=== PATIENT | female | born 1930 | race African-American/Black ===

== ENCOUNTER → 2016-08-24 | Outpatient (CLI) | payer MEDICARE, OTHER ==
[2016-01-08 14:28] VITALS: BP 133/56
[~2016-08-24] MED LIST: GLIM4TAB2 PO; HYDR12.58 PO; LEVO500T38 PO; ONDA4TAB7 PO; POTA10CA PO; SIMV10TA3 PO; SITA100T PO; VALS1TAB18 PO; VALS320T2 PO; VENTOLIN HFA18 GM INH
--- NOTE | 2016-08-24 12:30 | RAD ---
Left knee, 3 views, 08/24/2016: History: Lateral knee pain, previous fall There is patchy bony demineralization. There is mild spurring at the knee joint and at the patellofemoral articulation. No acute fracture or dislocation is identified. No significant joint effusion is seen. IMPRESSION: 1. Demineralization. 2. Mild degenerative change. 3. No acute bony abnormality is detected.
== END | disposition home or self-care (01) ==
LOC: RAD 09:59
PROVIDERS: ATTEND Family Medicine
DX: M17.12 Unilateral primary osteoarthritis, left knee (principal)
CPT/HCPCS: 73562

== ENCOUNTER 2019-05-02 19:18 | Emergency (ER) | payer BC, MEDICAID ==
[~2019-05-02] VITALS: Ht 162.6 cm; Wt 83.9 kg
[~2019-05-02 19:18] MED LIST changes: -GLIM4TAB2 PO; +GLIM4TAB8 PO; -LEVO500T38 PO; +LEVO500T59 PO; -POTA10CA PO; +POTA10TA12 PO; +SIMV10TA15 PO; -SIMV10TA3 PO
[2019-05-02 20:09] LABS: BASO # 0.1 x10^3/uL (0.0-0.2); BASO % 1 % (0-3); EOS # 0.2 x10^3/uL (0.0-0.7); EOS % 3 % (0-3); HEMATOCRIT 38.5 % (36.0-47.0); HEMOGLOBIN 12.7 g/dL (12.0-15.5); LYMPH % 29 % (24-48); MEAN CORPUSCULAR HEMOGLOBIN 29 pg (25-35); MEAN CORPUSCULAR HGB CONC 33 g/dL (31-37); MEAN CORPUSCULAR VOLUME 89 fL (79-100); MONO # 0.4 x10^3/uL (0.0-1.1); MONO % 6 % (0-9); NEUT # 4.3 x10^3/uL (1.8-7.7); NEUT % 62 % (31-73); PLATELET COUNT 189 x10^3/uL (140-400); RED BLOOD COUNT 4.33 x10^6/uL (3.50-5.40); RED CELL DISTRIBUTION WIDTH 13.7 % (11.5-14.5); WHITE BLOOD COUNT 6.9 x10^3/uL (4.0-11.0)
--- NOTE | 2019-05-02 20:11 | PHYS DOC ---
Past Medical History Past Medical History: CVA, Diabetes-Type II, High Cholesterol, Hypertension, UTI, Other Additional Past Medical Histor: BRAIN TUMOR, HEART MURMUR Past Surgical History: Hysterectomy, Other Additional Past Surgical Histo: BLADDER REPAIR, brain tumor removed Alcohol Use: None Drug Use: None Adult General Chief Complaint Chief Complaint: CHEST PAIN HPI HPI 89-year-old female presents to the emergency department with complaints of chest pain, cough. Patient has a history of hypertension, diabetes, hyperlipidemia. She is unable to give me details of when her chest pain started she's a little confused on examination. She denies any headache or visual change, denies any abdominal pain at this time. Nothing makes her pain worse, nothing makes her pain better. Review of Systems Review of Systems Constitutional: Denies fever or chills [] Respiratory: Denies cough or shortness of breath [] Cardiovascular: No additional information not addressed in HPI [] GI: Denies abdominal pain, nausea, vomiting, bloody stools or diarrhea [] Musculoskeletal: Denies back pain or joint pain [] Neurologic: Denies headache, focal weakness or sensory changes [] All other systems were reviewed and found to be within normal limits, except as documented in this note. Current Medications Current Medications Current Medications Medications (Trade) Dose Ordered Sig/Hamzah Start Time Stop Time Status Last Admin Dose Admin Aspirin (Children'S Aspirin) 324 mg 1X ONCE 05/02/19 20:15 05/02/19 20:16 DC 05/02/19 20:12 324 MG Nitroglycerin (Nitrostat) 0.4 mg PRN Q5MIN PRN 05/02/19 20:15 05/03/19 20:14 05/02/19 20:14 0.4 MG Allergies Allergies Allergies Coded Allergies Type Severity Reaction Last Updated Verified Sulfa (Sulfonamide Antibiotics) Allergy Intermediate 05/02/19 Yes codeine Adverse Reaction Intermediate CONFUSED 05/02/19 Yes Physical Exam Physical Exam Constitutional: Well developed, well nourished, no acute distress, non-toxic appearance. [] HENT: Normocephalic, atraumatic, bilateral external ears normal, oropharynx moist, no oral exudates, nose normal. [] Eyes: PERRLA, EOMI, conjunctiva normal, no discharge. [] Cardiovascular:Heart rate regular rhythm, no murmur [] Lungs & Thorax: Bilateral breath sounds clear to auscultation [] Abdomen: Bowel sounds normal, soft, no tenderness, no masses, no pulsatile masses. [] Skin: Warm, dry, no erythema, no rash. [] Extremities: No tenderness, no edema. [] Neurologic: Alert and oriented X 3,no focal deficits noted. [] Psychologic: Affect normal, judgement normal, mood normal. [] Current Patient Data Vital Signs Vital Signs Date Time Temp Pulse Resp B/P (MAP) Pulse Ox O2 Delivery O2 Flow Rate FiO2 05/02/19 21:00 60 20 164/78 (106) 98 Room Air 05/02/19 20:12 99.1 99.1 Lab Values Laboratory Tests Test 05/02/19 19:43 White Blood Count 6.9 x10^3/uL (4.0-11.0) Red Blood Count 4.33 x10^6/uL (3.50-5.40) Hemoglobin 12.7 g/dL (12.0-15.5) Hematocrit 38.5 % (36.0-47.0) Mean Corpuscular Volume 89 fL (79-100) Mean Corpuscular Hemoglobin 29 pg (25-35) Mean Corpuscular Hemoglobin Concent 33 g/dL (31-37) Red Cell Distribution Width 13.7 % (11.5-14.5) Platelet Count 189 x10^3/uL (140-400) Neutrophils (%) (Auto) 62 % (31-73) Lymphocytes (%) (Auto) 29 % (24-48) Monocytes (%) (Auto) 6 % (0-9) Eosinophils (%) (Auto) 3 % (0-3) Basophils (%) (Auto) 1 % (0-3) Neutrophils # (Auto) 4.3 x10^3/uL (1.8-7.7) Lymphocytes # (Auto) 2.0 x10^3/uL (1.0-4.8) Monocytes # (Auto) 0.4 x10^3/uL (0.0-1.1) Eosinophils # (Auto) 0.2 x10^3/uL (0.0-0.7) Basophils # (Auto) 0.1 x10^3/uL (0.0-0.2) Sodium Level 141 mmol/L (136-145) Potassium Level 4.0 mmol/L (3.5-5.1) Chloride Level 103 mmol/L (98-107) Carbon Dioxide Level 29 mmol/L (21-32) Anion Gap 9 (6-14) Blood Urea Nitrogen 24 mg/dL (7-20) H Creatinine 1.2 mg/dL (0.6-1.0) H Estimated GFR (Cockcroft-Gault) 51.2 BUN/Creatinine Ratio 20 (6-20) Glucose Level 195 mg/dL (70-99) H Calcium Level 10.1 mg/dL (8.5-10.1) Magnesium Level 2.0 mg/dL (1.8-2.4) Total Bilirubin 0.2 mg/dL (0.2-1.0) Aspartate Amino Transferase (AST) 24 U/L (15-37) Alanine Aminotransferase (ALT) 35 U/L (14-59) Alkaline Phosphatase 60 U/L (46-116) Troponin I Quantitative < 0.017 ng/mL (0.000-0.055) FF-Mya-B-Type Natriuretic Peptide 120 pg/mL (0-449) Total Protein 8.0 g/dL (6.4-8.2) Albumin 3.8 g/dL (3.4-5.0) Albumin/Globulin Ratio 0.9 (1.0-1.7) L Laboratory Tests 05/02/19 19:43 Laboratory Tests 05/02/19 19:43 EKG EKG EKG reviewed, left axis deviation, normal sinus rhythm, heart rate 65, no STEMI[] Radiology/Procedures Radiology/Procedures [facility] [address] [place] [address] IMAGING REPORT Signed PATIENT: TEETEE RENAE CACCOUNT: [id number] : 1930 LOCATION: ER AGE: 89 SEX: F EXAM STATUS: PRE ER ORD. PHYSICIAN: NISH FLOWERS MD REASON: chest pain PROCEDURE: PORTABLE CHEST 1V Chest AP portable at 2015: Reason for examination: Chest pain. Comparison is made to previous study dated 01/01/2016. The heart size and mediastinal show no gross abnormalities considering patient rotation. Lung liu however show density at the left lung base laterally which may reflect some consolidated infiltrates from pneumonia however a mass cannot be excluded. Right lung field is clear. There continue to be calcifications consistent with granuloma in the left lung field. No acute bony abnormalities are seen. IMPRESSION: Density in the left lower lobe laterally. This may reflect consolidated infiltrates from pneumonia however a mass cannot be excluded. Recommend clinical correlation and follow-up. Electronically signed by: Awa Shah MD (05/02/2019 8:25 PM) [id number] DICTATED and SIGNED BY: AWA SHAH MD DATE: 05/02/192024 [] Course & Med Decision Making Course & Med Decision Making Pertinent Labs and Imaging studies reviewed. (See chart for details) []89-year-old female presents to the emergency department with complaints of chest pain, cough. Patient has a history of hypertension, diabetes, hyperlipidemia. She is unable to give me details of when her chest pain started she's a little confused on examination. She denies any headache or visual change, denies any abdominal pain at this time. Nothing makes her pain worse, nothing makes her pain better. Labs reviewed - negative to date Trop negative x 2 CXR with evidence of left lower lobe consolidation Discussed findings with patient/family at bedside Recommend dc home and follow up as outpatient Patient will need repeat CXR follow up as outpatient Dragon Disclaimer Dragon Disclaimer This electronic medical record was generated, in whole or in part, using a voice recognition dictation system. The HEART Score for CP Pts HEART Score for Chest Pain: HEART Score for Chest Pain Response (Comments) Value History Slighlty/Non-Suspicious 0 ECG Nonspecific Repolarizatio 1 Age > 65 2 Risk Factors 1 or 2 Risk Factors 1 Troponin < Normal Limit 0 Total 4 Risk Factors: Risk Factors: DM, Current or recent (<one month) smoker, HTN, HLP, family history of CAD, obesity. Risk Scores: Score 0 - 3: 2.5% MACE over next 6 weeks - Discharge Home Score 4 - 6: 20.3% MACE over next 6 weeks - Admit for Clinical Observation Score 7 - 10: 72.7% MACE over next 6 weeks - Early Invasive Strategies Departure Departure Impression: Primary Impression: Chest pain Additional Impression: Pneumonia Disposition: HOME, SELF-CARE Condition: IMPROVED Referrals: NAIDA RAMSEY (PCP) Patient Instructions: Chest Pain Observation, Pneumonia, Adult, [id number] Additional Instructions: Recommend follow up with PCP 3 - 5 days Return to the ER with worsening symptoms, intractable pain, fever, altered mental status Tylenol/Motrin as needed for pain Take antibiotics - Augmentin po BID x 7 days Patient needs repeat chest xray in 10 days for follow up Scripts Amoxicillin/Potassium Clav (AUGMENTIN 875-125 TABLET) 1 Each Tablet 1 TAB PO Q12HR, #20 TAB Prov: NISH FLOWERS MD 05/03/19 Problem Qualifiers Primary Impression: Chest pain Chest pain type: unspecified Qualified Codes: R07.9 - Chest pain, u nspecified Additional Impression: Pneumonia Pneumonia type: due to unspecified organism Laterality: left Lung locatio n: lower lobe of lung Qualified Codes: J18.9 - Pneumonia, unspecified organism NISH FLOWERS MD May 02, 2019 20:10
[2019-05-02] MEDS ORDERED: ASPIRIN CHEWABLE 81 MG TABLET. PO ONE (20:15)
[2019-05-02] MEDS ORDERED: NITROGLYCERIN SUBLINGUAL 0.4 MG BOTTLE OF 25. SL PRN (20:15)
--- NOTE | 2019-05-02 20:27 | RAD ---
Chest AP portable at 2015: Reason for examination: Chest pain. Comparison is made to previous study dated 01/01/2016. The heart size and mediastinal show no gross abnormalities considering patient rotation. Lung liu however show density at the left lung base laterally which may reflect some consolidated infiltrates from pneumonia however a mass cannot be excluded. Right lung field is clear. There continue to be calcifications consistent with granuloma in the left lung field. No acute bony abnormalities are seen. IMPRESSION: Density in the left lower lobe laterally. This may reflect consolidated infiltrates from pneumonia however a mass cannot be excluded. Recommend clinical correlation and follow-up. Electronically signed by: Clau Melendrez MD (05/02/2019 8:25 PM) [facility]
[2019-05-02 20:29] LABS: CALCIUM 10.1 mg/dL (8.5-10.1); CREATININE 1.2 mg/dL (0.6-1.0); GFR 51.2
[2019-05-02 20:34] LABS: ALBUMIN 3.8 g/dL (3.4-5.0); ALBUMIN/GLOBULIN RATIO 0.9 (1.0-1.7); TOTAL BILIRUBIN 0.2 mg/dL (0.2-1.0)
[2019-05-03] MEDS ORDERED: AMOX1TAB61 PO (00:22)
[2019-05-03 00:25] VITALS: BP 186/84
--- NOTE | 2019-05-03 06:36 | EKG ---
[facility] [address] [place] [address] Test Date: 2019-05-02 Test Time: 19:24:12 Pat Name: TEETEE RENAE Department: Room: Gender: F [employer]: : 1930 Requested By: NISH FLOWERS Order Number: [id number] Reading MD: Measurements Intervals [place] Rate: 65 P: -3 AK: 258 QRS: -9 QRSD: 68 T: 51 QT: 396 QTc: 413 Interpretive Statements SINUS RHYTHM PROLONGED AK INTERVAL LEFTWARD AXIS ABNORMAL ECG RI6.01 No previous ECG available for comparison
== END 2019-05-03 00:38 | disposition home or self-care (01) ==
LOC: ER 19:18
DX: J18.9 Pneumonia, unspecified organism (principal); E11.9 Type 2 diabetes mellitus without complications; E78.00 Pure hypercholesterolemia, unspecified; I10 Essential (primary) hypertension; Z86.73 Personal history of transient ischemic attack (TIA), and cerebral infarction without residual deficits; Z88.2 Allergy status to sulfonamides; Z88.5 Allergy status to narcotic agent
CPT/HCPCS: 36415; 71045; 80053; 83735; 83880; 84484; 85025; 93005; 99285-25

== ENCOUNTER 2019-07-09 03:46 | Emergency (ER) | payer OTHER, MEDICAID ==
[~2019-07-09] VITALS: Ht 162.6 cm; Wt 75.5 kg
[~2019-07-09 03:46] MED LIST changes: +AMOX1TAB61 PO
--- NOTE | 2019-07-09 04:45 | RAD ---
AP chest. HISTORY: Cough Portable AP view was taken of the chest. There is widening of the upper mediastinum mildly more prominent than the old study. Widening the mediastinum could be related to adenopathy or substernal thyroid or tortuous vessels CT could be of benefit. There are calcified granulomas or calcified pleural plaques similar to the old exam. There is no effusion. There are no definite new infiltrates. IMPRESSION: 1. Mild increase widening superior mediastinum. 2. No new infiltrates or other acute change. Electronically signed by: Humberto Osborne MD (07/09/2019 4:42 AM) [id number]
[2019-07-09] MEDS ORDERED: AMOX1TAB61 PO (05:11)
--- NOTE | 2019-07-09 05:12 | PHYS DOC ---
Past Medical History Past Medical History: Diabetes-Type II, High Cholesterol Additional Past Medical Histor: BRAIN TUMOR, HEART MURMUR Past Surgical History: Hysterectomy, Other Additional Past Surgical Histo: brain tumor removal sg Smoking Status: Former Smoker Alcohol Use: None Drug Use: None Adult General Chief Complaint Chief Complaint: SHORTNESS OF BREATH HPI HPI 89 year old female presents with the chief complaint of cough and sinus congestion. States symptoms have been on going x 2 weeks. Symptoms worse over the last several days. States multiple sick contacts at her living facility. Cough is without sputum production. Similar symptoms several weeks ago-- placed on antibiotics with resolution of symptoms. Patient denies any chest pain. Review of Systems Review of Systems Constitutional: positive fever or chills [] Eyes: Denies change in visual acuity, redness, or eye pain [] HENT: positive nasal congestion no sore throat [] Respiratory: positive cough or shortness of breath [] Cardiovascular: No additional information not addressed in HPI [] GI: Denies abdominal pain, nausea, vomiting, bloody stools or diarrhea [] : Denies dysuria or hematuria [] Musculoskeletal: Denies back pain or joint pain [] Integument: Denies rash or skin lesions [] Neurologic: Denies headache, focal weakness or sensory changes [] Endocrine: Denies polyuria or polydipsia [] All other systems were reviewed and found to be within normal limits, except as documented in this note. Allergies Allergies Allergies Coded Allergies Type Severity Reaction Last Updated Verified Sulfa (Sulfonamide Antibiotics) Allergy Intermediate 05/02/19 Yes codeine Adverse Reaction Intermediate CONFUSED 05/02/19 Yes Physical Exam Physical Exam Constitutional: Well developed, well nourished, no acute distress, non-toxic appearance. [] HENT: Normocephalic, atraumatic, bilateral external ears normal, oropharynx moist, no oral exudates, nose normal. [] Eyes: PERRLA, EOMI, conjunctiva normal, no discharge. [] Neck: Normal range of motion, no tenderness, supple, no stridor. [] Cardiovascular:Heart rate regular rhythm, no murmur [] Lungs & Thorax: Bilateral breath sounds clear to auscultation [] Abdomen: Bowel sounds normal, soft, no tenderness, no masses, no pulsatile masses. [] Skin: Warm, dry, no erythema, no rash. [] Back: No tenderness, no CVA tenderness. [] Extremities: No tenderness, no cyanosis, no clubbing, ROM intact, no edema. [] Neurologic: Alert and oriented X 3, normal motor function, normal sensory function, no focal deficits noted. [] Psychologic: Affect normal, judgement normal, mood normal. [] Current Patient Data Vital Signs Vital Signs Date Time Temp Pulse Resp B/P (MAP) Pulse Ox O2 Delivery O2 Flow Rate FiO2 07/09/19 04:04 65 24 186/77 (113) 95 Room Air 07/09/19 03:49 98.7 98.7 EKG EKG [] Radiology/Procedures Radiology/Procedures [] Course & Med Decision Making Course & Med Decision Making Pertinent Labs and Imaging studies reviewed. (See chart for details) []Patient was evaluated for chief complaint. Workup consisted of radiologic imaging. Results reviewed and discussed with patient. Radiologist's impression no focal infiltrate questionable enlargement of mediastinum recommending follow- up CT. Discussed x-ray findings with the patient and suggested that she get a CT of her chest. Patient declining CT imaging in the emergency department. Patient states she would like to follow up with her primary care physician for further outpatient workup. At this time I'll place the patient on an antibiotic per her request. Patient was previously on Augmentin with resolution of similar symptoms. Patient's symptoms are more upper respiratory. She denies any chest pain. Dragon Disclaimer Dragon Disclaimer This electronic medical record was generated, in whole or in part, using a voice recognition dictation system. Departure Departure Impression: Primary Impression: Bronchitis Disposition: 01 HOME, SELF-CARE Condition: STABLE Referrals: NAIDA RAMSEY (PCP) Patient Instructions: Bronchitis Scripts Amoxicillin/Potassium Clav (AUGMENTIN 875-125 TABLET) 1 Each Tablet 1 TAB PO BID for 10 Days, #20 TAB 0 Refills Prov: SHANA JENSEN DO 07/09/19 SHANA JENSEN DO Jul 09, 2019 05:12
[2019-07-09 07:02] VITALS: BP 176/111
== END 2019-07-09 07:03 | disposition home or self-care (01) ==
LOC: ER 03:46
DX: J40 Bronchitis, not specified as acute or chronic (principal); E11.9 Type 2 diabetes mellitus without complications; E78.00 Pure hypercholesterolemia, unspecified; Z87.891 Personal history of nicotine dependence; Z88.2 Allergy status to sulfonamides; Z88.5 Allergy status to narcotic agent
CPT/HCPCS: 71045; 99284

== ENCOUNTER 2020-01-09 05:19 | Inpatient (IN) | payer OTHER, MEDICAID ==
[~2020-01-09] VITALS: Ht 162.6 cm; Wt 86.0 kg
--- NOTE | 2020-01-09 05:59 | PHYS DOC ---
Past Medical History Past Medical History: Diabetes-Type II, High Cholesterol Additional Past Medical Histor: BRAIN TUMOR, HEART MURMUR (SHANA SAVAGE I ) Past Surgical History: Hysterectomy, Other Additional Past Surgical Histo: brain tumor removal sg (MIKEYSHANA I ) Smoking Status: Former Smoker Alcohol Use: None Drug Use: None (MIKEYSHANA I ) General Adult EDM: Chief Complaint: NAUSEA/VOMITING/DIARRHA HPI: HPI: Patient is a 89 year old female presents from group home with the chief complaint nausea vomiting and loose stool since yesterday. Patient denies any associated abdominal pain. Patient also states she has a cough and sore throat for several days. No associated fever or shortness of breath. (MIKEYSHANA Viktoria LEVY) Review of Systems: Review of Systems: Constitutional: Denies fever or chills. [] Eyes: Denies change in visual acuity. [] HENT: Denies nasal congestion positive sore throat. [] Respiratory: positive cough denies shortness of breath. [] Cardiovascular: Denies chest pain or edema. [] GI: Denies abdominal pain, positive nausea, vomiting, loose stools [] : Denies dysuria. [] Musculoskeletal: Denies back pain or joint pain. [] Integument: Denies rash. [] Neurologic: Denies headache, focal weakness or sensory changes. [] Endocrine: Denies polyuria or polydipsia. [] Lymphatic: Denies swollen glands. [] Psychiatric: Denies depression or anxiety. [] (MIKEYSHANA Viktoria LEVY) Heart Score: Risk Factors: Risk Factors: DM, Current or recent (<one month) smoker, HTN, HLP, family history of CAD, obesity. Risk Scores: Score 0 - 3: 2.5% MACE over next 6 weeks - Discharge Home Score 4 - 6: 20.3% MACE over next 6 weeks - Admit for Clinical Observation Score 7 - 10: 72.7% MACE over next 6 weeks - Early Invasive Strategies (MIKEYSHANA Viktoria LEVY) Allergies: Allergies: Allergies Coded Allergies Type Severity Reaction Last Updated Verified Sulfa (Sulfonamide Antibiotics) Allergy Intermediate 05/02/19 Yes codeine Adverse Reaction Intermediate CONFUSED 05/02/19 Yes (MIKEYSHANA Viktoria LEVY) Physical Exam: PE: General: alert, no acute distress. Skin: warm, dry and intact. Head:: Normocephalic, atraumatic. Neck: Trachea midline. Eyes: EOMI, Normal conjunctiva, No drainage CARDIOVASCULAR: Regular rate and rhythm RESPIRATORY: No respiratory distress Back: Full range of motion. MUSCULOSKELETAL: Full range of motion of bilateral upper and lower extremities. Pain with ROM right shoulder (chronic) GASTROINTESTINAL: Abdomen soft without rebound or guarding. NEUROLOGICAL: Alert and noted to person, place and time. No neurological deficits observed Psychiatric: Cooperative. Normal judgment (SHANA SAVAGE DO) PE: Abdomen soft with tenderness in the epigastric and right-sided (ALMA HURTADO MD) Current Patient Data: Labs: Laboratory Tests Test 01/09/20 05:37 Glucose (Fingerstick) 201 mg/dL (70-99) H (SHANA SAVAGE DO) Labs: Laboratory Tests Test 01/09/20 05:35 01/09/20 05:37 01/09/20 06:15 White Blood Count 7.2 x10^3/uL Red Blood Count 4.25 x10^6/uL Hemoglobin 12.7 g/dL Hematocrit 38.2 % Mean Corpuscular Volume 90 fL Mean Corpuscular Hemoglobin 30 pg Mean Corpuscular Hemoglobin Concent 33 g/dL Red Cell Distribution Width 13.8 % Platelet Count 208 x10^3/uL Neutrophils (%) (Auto) 62 % Lymphocytes (%) (Auto) 31 % Monocytes (%) (Auto) 5 % Eosinophils (%) (Auto) 2 % Basophils (%) (Auto) 1 % Neutrophils # (Auto) 4.5 x10^3/uL Lymphocytes # (Auto) 2.2 x10^3/uL Monocytes # (Auto) 0.4 x10^3/uL Eosinophils # (Auto) 0.1 x10^3/uL Basophils # (Auto) 0.0 x10^3/uL Sodium Level 138 mmol/L Potassium Level 4.2 mmol/L Chloride Level 101 mmol/L Carbon Dioxide Level 30 mmol/L Anion Gap 7 Blood Urea Nitrogen 15 mg/dL Creatinine 1.2 mg/dL Estimated GFR (Cockcroft-Gault) 51.2 BUN/Creatinine Ratio 13 Glucose Level 204 mg/dL Calcium Level 9.3 mg/dL Total Bilirubin 0.3 mg/dL Aspartate Amino Transf (AST/SGOT) 24 U/L Alanine Aminotransferase (ALT/SGPT) 38 U/L Alkaline Phosphatase 60 U/L Troponin I Quantitative < 0.017 ng/mL Total Protein 8.1 g/dL Albumin 3.8 g/dL Albumin/Globulin Ratio 0.9 Lipase 719 U/L Glucose (Fingerstick) 201 mg/dL Urine Collection Type Unknown Urine Color Yellow Urine Clarity Clear Urine pH 5.0 Urine Specific [place] 1.010 Urine Protein Negative mg/dL Urine Glucose (UA) Negative mg/dL Urine Ketones (Stick) Negative mg/dL Urine Blood Moderate Urine Nitrite Negative Urine Bilirubin Negative Urine Urobilinogen Dipstick 0.2 mg/dL Urine Leukocyte Esterase Small Urine RBC 6-10 /HPF Urine WBC 1-4 /HPF Urine Squamous Epithelial Cells Mod /LPF Urine Amorphous Sediment Present /HPF Urine Bacteria Moderate /HPF Current Medications Medications (Trade) Dose Ordered Sig/Hamzah Route PRN Reason Start Time Stop Time Status Last Admin Dose Admin Ondansetron HCl (Zofran) 4 mg 1X ONCE IVP 01/09/20 07:00 01/09/20 07:01 DC 01/09/20 06:59 Sodium Chloride 500 ml @ 500 mls/hr 1X ONCE IV 01/09/20 07:00 01/09/20 07:59 DC 01/09/20 06:59 Iohexol (Omnipaque 300 Mg/ml) 60 ml 1X ONCE IV 01/09/20 07:30 01/09/20 07:31 DC Info (CONTRAST GIVEN -- Rx MONITORING) 1 each PRN DAILY PRN MC SEE COMMENTS 01/09/20 07:30 01/11/20 07:29 Vital Signs: Vital Signs Date Time Temp Pulse Resp B/P (MAP) Pulse Ox O2 Delivery O2 Flow Rate FiO2 01/09/20 06:26 60 20 185/77 (113) 98 Room Air 01/09/20 05:56 64 20 168/125 (139) 98 Room Air 01/09/20 05:38 98.9 73 20 192/82 (118) 98 Room Air 98.9 01/09/20 05:29 66 20 192/82 (118) 98 Room Air (ALMA HURTADO MD) EKG: EKG: EKG 0540hrs Rate 63 Sinus Rhythm No stemi [] (SHANA SAVAGE DO) Radiology/Procedures: Radiology/Procedures: [] (MIKEY,SHANA I DO) Radiology/Procedures: [facility] [address] [place] [address] IMAGING REPORT Signed PATIENT: TEETEE RENAE CACCOUNT: [id number] : 1930 LOCATION: ER AGE: 89 SEX: F EXAM STATUS: REG ER ORD. PHYSICIAN: SHANA SAVAGE DO REASON: cough PROCEDURE: CHEST AP ONLY CHEST AP ONLY Clinical Indication: Reason: cough / Comparison: AP chest July 09, 2019. Findings: At this chronic aortic arch. Stable appearance of the right paratracheal stripe. Cardiac size is normal. Multiple calcified granulomas in the lungs are redemonstrated. No acute airspace disease is seen.. There is no pneumothorax. No pleural effusion is appreciated. No acute bone abnormality. IMPRESSION: 1. Multiple calcified granulomas in the lungs. 2. Stable prominence of the right paratracheal stripe. Electronically signed by: Tavo Montenegro MD (01/09/2020 6:54 AM) [facility] DICTATED and SIGNED BY: TAVO MONTENEGRO MD DATE: 01/09/20 [id number] [place], [place] [id number] IMAGING REPORT Signed PATIENT: TEETEE RENAE CACCOUNT: [id number] : 1930 LOCATION: ER AGE: 89 SEX: F EXAM STATUS: REG ER ORD. PHYSICIAN: ALMA HURTADO MD REASON: r abd pain, elevated lipase PROCEDURE: CT ABD PELV W/ IV CONTRST ONLY CT abdomen and pelvis with contrast PQRS statement: CT scans at this facility use dose reduction including either automated exposure control, iterative reconstructions, and /or weight based radiation dosing via mA and kV modification when appropriate to reduce radiation dose to as low as reasonably achievable. Contrast: 60 mL Omnipaque 300 intravenous contrast. HISTORY: Right-sided abdominal pain, elevated lipase. Abdomen findings: Bilateral calcified pleural plaques lung bases. Noncalcified pleural plaque or subpleural parenchymal nodules 6 mm right lower lobe image 2. Small sliding hiatal hernia gastroesophageal junction. Lumbar scoliosis, disc disease and facet arthritis with spinal canal and neural foraminal stenoses. Mild prominence of the common bile duct typical after cholecystectomy. There is dilation of the pancreatic duct at the head of the tail with a diameter of approximately of the 9 mm, an underlying cystic lesion associated with a tortuous dilated duct is not excluded no obvious solid pancreatic lesion evident. No edema of the pancreas. Liver, spleen, adrenal glands and kidneys are unremarkable. Extensive left colonic diverticulosis. Appendix is negative. No obstruction or inflammation the GI tract. Mild calcified plaque aorta and iliac arteries and abdominal arteries. No abdominal fluid or adenopathy. 2 cm fatty umbilical abdominal wall hernia. Prior abdominal wall hernia repair noted. Pelvis findings: Small focus of air within the nondependent urinary bladder and moderate distention bladder, air presumably from recent catheterization no obvious fistula tract with the bowel evident. Hysterectomy. Ovaries atrophic or surgically absent. Rectum and bones are unremarkable. No pelvic fluid or adenopathy. IMPRESSION: 1. No acute process. Appendix is negative. 2. Colonic diverticulosis without diverticulitis evident. 3. Prominent dilation of the pancreatic duct at the head to the tail with an approximate diameter of 9 mm. An underlying ductal stricture or cystic or solid pancreatic lesion associated with the duct dilation is not excluded. These findings could be further assessed with MRCP imaging. 4. 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 There is also a 6 mm noncalcified right lower lobe pleural plaque versus a subpleural parenchymal pulmonary nodule. Consider follow-up CT imaging in 6-12 months. Electronically signed by: Avis Chester MD (01/09/2020 8:14 AM) [id number] DICTATED and SIGNED BY: AVIS CHESTER MD DATE: 01/09/20 08 (ALMA HURTADO MD) Course & Med Decision Making: Course & Med Decision Making Pertinent Labs and Imaging studies reviewed. (See chart for details) []Patient signed out to Dr Hurtado at shift change 0600hrs. Disposition pending labs and re-evaluation. (SHANA SAVAGE I DO) Course & Med Decision Making Received signout from Dr. Saavge about Ms. Renae who had nausea vomiting for several weeks. Labs reveal pancreatitis. On my assessment she is got right abdominal tenderness therefore CT was done which shows a possible pancreatic lesion. Patient will be admitted with GI consult. Discussed with Dr. Koduri who will admit. (ALMA HURTADO MD) Claudia Disclaimer: Claudia Disclaimer: This electronic medical record was generated, in whole or in part, using a voice recognition dictation system. (SHANA SAVAGE I DO) Departure Departure Impression: Primary Impression: Nausea and vomiting Additional Impressions: Cough Pancreatitis Disposition: ADMITTED INPATIENT Referrals: NAIDA RAMSEY (PCP) Patient Instructions: Cough, Adult, Nausea and Vomiting Additional Instructions: You have been tested for or diagnosed with COVID-19. It is an infection caused by a new type of coronavirus. COVID-19 will cause cold-like or mild flu symptoms in most. It can cause more severe symptoms like problems breathing in some. There is no treatment for COVID-19. The body will clear the infection over time. Self-care will help to ease discomfort. Steps to Take: Self-Care Rest as needed. Healthy habits may help you feel better. Steps include: Choose healthy foods including fruits and vegetables. Drink water throughout the day. Get plenty of sleep each night. If you smoke, try to quit. It may ease breathing. Avoid alcohol. Keep Others Healthy The virus can spread to others. Droplets are released every time you sneeze or cough. The droplets can get into the mouth, nose, or eyes of people near you and lead to infection. To lower the chances of spreading COVID-19 to others: Stay at home until your doctor has said it is safe to leave. If you tested positive this will mean staying isolated until both of the following are true: At least 7 days have passed since the start of illness. You are free of fever for at least 72 hours without the use of medicine. During this time: - Avoid public areas, events, or transportation. Do not return to work or school until your doctor has said it is safe to do so. - Call ahead if you need to go to a medical center. Let them know you may have COVID-19. It will help them guide you where to go. They may also ask you to wear a facemask when you come to the office. - If you call for emergency medical services, let them know you may have COVID- 19. While at home: - Try to avoid close contact with others. Stay about 6 feet away. - If possible, spend most of your time in a separate room from others. - Use a face mask if you will be in close contact with others such as sharing a room or vehicle. - Have someone wipe down common surfaces in the home. Use household advertisement compositor every day on areas like doorknobs, counters, or sinks. - Cough or sneeze into a tissue. Throw the tissue away right after use. If a tissue is not available, cough or sneeze into your elbow. - Wash your hands often. Wash them after sneezing or coughing. Use soap and water and wash for at least 20 seconds. Alcohol based hand power cleaner operator can be used if soap and water is not available. - Do not prepare food for others. Avoid sharing personal items like forks, spoons, or toothbrushes. - Avoid close contact with pets while you are sick. There is no evidence of the virus passing to pets. This is a safety step until more is known about this virus. Isolation can be frustrating. Social interaction can help. Keep in touch with friends and family through phone and tech options. You can still interact with others in your home, just keep a safe distance of about 6 feet. Follow-up: Your doctors office will check in with you to see if there are any changes in your health. You may be asked to keep track of symptoms to share with them. They will also let you know when you are clear to be in public again. Problems to Look Out For: Contact your doctor if your recovery is not going as you expect. Get emergency care if you have problems such as: - Trouble breathing - Nonstop chest pain or pressure - Changes in awareness, confusion, or problems waking - Lips or face have bluish color - Worsening of symptoms If you think you have an emergency, call for emergency medical services right away. As taken from [facility] Justicifation of Admission Dx: Justifications for Admission: Justification of Admission Dx: Yes Comments: pancreatitis (ALMA HURTADO MD) SHANA SAVAGE I DO Jan 09, 2020 05:59 ALMA HURTADO MD Jan 09, 2020 07:01
[2020-01-09 06:03] LABS: ALBUMIN 3.8 g/dL (3.4-5.0); ALBUMIN/GLOBULIN RATIO 0.9 (1.0-1.7); CALCIUM 9.3 mg/dL (8.5-10.1); CREATININE 1.2 mg/dL (0.6-1.0); GFR 51.2; TOTAL BILIRUBIN 0.3 mg/dL (0.2-1.0); TOTAL PROTEIN 8.1 g/dL (6.4-8.2)
[2020-01-09 06:04] LABS: BASO % 1 % (0-3); EOS # 0.1 x10^3/uL (0.0-0.7); EOS % 2 % (0-3); HEMATOCRIT 38.2 % (36.0-47.0); HEMOGLOBIN 12.7 g/dL (12.0-15.5); LYMPH # 2.2 x10^3/uL (1.0-4.8); LYMPH % 31 % (24-48); MEAN CORPUSCULAR HEMOGLOBIN 30 pg (25-35); MEAN CORPUSCULAR HGB CONC 33 g/dL (31-37); MEAN CORPUSCULAR VOLUME 90 fL (79-100); MONO # 0.4 x10^3/uL (0.0-1.1); MONO % 5 % (0-9); NEUT # 4.5 x10^3/uL (1.8-7.7); NEUT % 62 % (31-73); PLATELET COUNT 208 x10^3/uL (140-400); RED BLOOD COUNT 4.25 x10^6/uL (3.50-5.40); RED CELL DISTRIBUTION WIDTH 13.8 % (11.5-14.5); WHITE BLOOD COUNT 7.2 x10^3/uL (4.0-11.0)
[2020-01-09 06:08] LABS: POTASSIUM 4.2 mmol/L (3.5-5.1)
[2020-01-09 06:31] LABS: BILIRUBIN,URINE NEGATIVE (NEG); CLARITY,URINE CLEAR; COLOR,URINE YELLOW; NITRITE,URINE NEGATIVE (NEG); PROTEIN,URINE NEGATIVE (NEG-TRACE); UROBILINOGEN,URINE 0.2 mg/dL (0.2 mg/dL)
[2020-01-09 06:46] LABS: AMORPHOUS SEDIMENT,UR PRESENT /HPF; BACTERIA,URINE MODERATE /HPF (0-FEW); SQUAMOUS EPITHELIAL CELL,UR MOD /LPF
--- NOTE | 2020-01-09 06:57 | RAD ---
CHEST AP ONLY Clinical Indication: Reason: cough / Comparison: AP chest July 09, 2019. Findings: At this chronic aortic arch. Stable appearance of the right paratracheal stripe. Cardiac size is normal. Multiple calcified granulomas in the lungs are redemonstrated. No acute airspace disease is seen.. There is no pneumothorax. No pleural effusion is appreciated. No acute bone abnormality. IMPRESSION: 1. Multiple calcified granulomas in the lungs. 2. Stable prominence of the right paratracheal stripe. Electronically signed by: Tavo Montenegro MD (01/09/2020 6:54 AM) [facility]
[2020-01-09] MEDS ORDERED: IV NORMAL SALINE 500ML BAG 500 ML IV ONE (07:00)
[2020-01-09] MEDS ORDERED: ONDANSETRON PF 4 MG/2 ML VIAL. IVP ONE (07:00)
[2020-01-09] MEDS ORDERED: CONTRAST GIVEN. MC PRN (07:30)
[2020-01-09] MEDS ORDERED: IOHEXOL 300 MG/ML 100ML VIAL. IV ONE (07:30)
--- NOTE | 2020-01-09 07:39 | EKG ---
[facility] [address] [place] [address] Test Date: 2020-01-09 Test Time: 05:40:47 Pat Name: TEETEE RENAE Department: Room: Gender: F Transportation Dispatch Manager: : 1930 Requested By: SHANA JENSEN Order Number: [id number] Reading MD: Measurements Intervals [place] Rate: 63 P: 0 SC: 230 QRS: 5 QRSD: 66 T: 55 QT: 400 QTc: 412 Interpretive Statements SINUS RHYTHM PROLONGED SC INTERVAL ABNORMAL ECG RI6.02 No previous ECG available for comparison
--- NOTE | 2020-01-09 08:17 | RAD ---
CT abdomen and pelvis with contrast PQRS statement: CT scans at this facility use dose reduction including either automated exposure control, iterative reconstructions, and /or weight based radiation dosing via mA and kV modification when appropriate to reduce radiation dose to as low as reasonably achievable. Contrast: 60 mL Omnipaque 300 intravenous contrast. HISTORY: Right-sided abdominal pain, elevated lipase. Abdomen findings: Bilateral calcified pleural plaques lung bases. Noncalcified pleural plaque or subpleural parenchymal nodules 6 mm right lower lobe image 2. Small sliding hiatal hernia gastroesophageal junction. Lumbar scoliosis, disc disease and facet arthritis with spinal canal and neural foraminal stenoses. Mild prominence of the common bile duct typical after cholecystectomy. There is dilation of the pancreatic duct at the head of the tail with a diameter of approximately of the 9 mm, an underlying cystic lesion associated with a tortuous dilated duct is not excluded no obvious solid pancreatic lesion evident. No edema of the pancreas. Liver, spleen, adrenal glands and kidneys are unremarkable. Extensive left colonic diverticulosis. Appendix is negative. No obstruction or inflammation the GI tract. Mild calcified plaque aorta and iliac arteries and abdominal arteries. No abdominal fluid or adenopathy. 2 cm fatty umbilical abdominal wall hernia. Prior abdominal wall hernia repair noted. Pelvis findings: Small focus of air within the nondependent urinary bladder and moderate distention bladder, air presumably from recent catheterization no obvious fistula tract with the bowel evident. Hysterectomy. Ovaries atrophic or surgically absent. Rectum and bones are unremarkable. No pelvic fluid or adenopathy. IMPRESSION: 1. No acute process. Appendix is negative. 2. Colonic diverticulosis without diverticulitis evident. 3. Prominent dilation of the pancreatic duct at the head to the tail with an approximate diameter of 9 mm. An underlying ductal stricture or cystic or solid pancreatic lesion associated with the duct dilation is not excluded. These findings could be further assessed with MRCP imaging. 4. 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 There is also a 6 mm noncalcified right lower lobe pleural plaque versus a subpleural parenchymal pulmonary nodule. Consider follow-up CT imaging in 6-12 months. Electronically signed by: Casey Chester MD (01/09/2020 8:14 AM) [id number]
[2020-01-09] MEDS ORDERED: ONDANSETRON PF 4 MG/2 ML VIAL. IV PRN (09:00)
[2020-01-09 12:05] VITALS: BP 205/91
[2020-01-09 12:30] VITALS: BP 188/82
--- NOTE | 2020-01-09 14:01 | PDOC2 ---
GI CONSULT Date of Service: DATE: 01/09/20 TIME: 13:53 Reason For Consult: pancreatitis HPI: HPI: 89 y/o female from nursing facility. Says she's lived there for a year and doesn't like the food. For the past couple weeks, has had vomiting. Denies abdominal pain but has some neck pain. Labs note mildly elevated lipase and CT notes prominent dilation of the pancreatic duct at the head to the tail with an approximate diameter of 9 mm. Has had mildly elevated lipase values in the past. She has occasional reflux related to certain foods. No dysphagia, hematemesis, diarrhea, constipation, hematochezia, or melena. Thinks she might have had an EGD here in the past. Not sure about colonoscopy. S/p cholecystectomy (doesn't know about stones). No PUD history. Mild fatty liver on imaging. PMH: PMH: HTN, DM, pneumonia, arthritis, depression/anxiety cholecystectomy, brain tumor removal, hysterectomy FH: Family History: No pertinent hx Social History: Smoke: No ALCOHOL: none ROS: GEN: Denies fevers, chills, sweats HEENT: Denies blurred vision, sore throat CV: Denies chest pain RESP: Denies shortness of air, cough GI: Per HPI : Denies hematuria, dysuria ENDO: Denies weight changes NEURO: Denies confusion, dizziness MSK: +weakness SKIN: Denies jaundice, pruritus Vitals: Vitals: Vital Signs Date Time Temp Pulse Resp B/P (MAP) Pulse Ox O2 Delivery O2 Flow Rate FiO2 01/09/20 12:30 68 188/82 (117) 01/09/20 12:05 98.5 20 96 Room Air 98.5 Labs: Labs: Laboratory Tests Test 01/09/20 05:35 01/09/20 05:37 01/09/20 06:15 White Blood Count 7.2 x10^3/uL (4.0-11.0) Red Blood Count 4.25 x10^6/uL (3.50-5.40) Hemoglobin 12.7 g/dL (12.0-15.5) Hematocrit 38.2 % (36.0-47.0) Mean Corpuscular Volume 90 fL (79-100) Mean Corpuscular Hemoglobin 30 pg (25-35) Mean Corpuscular Hemoglobin Concent 33 g/dL (31-37) Red Cell Distribution Width 13.8 % (11.5-14.5) Platelet Count 208 x10^3/uL (140-400) Neutrophils (%) (Auto) 62 % (31-73) Lymphocytes (%) (Auto) 31 % (24-48) Monocytes (%) (Auto) 5 % (0-9) Eosinophils (%) (Auto) 2 % (0-3) Basophils (%) (Auto) 1 % (0-3) Neutrophils # (Auto) 4.5 x10^3/uL (1.8-7.7) Lymphocytes # (Auto) 2.2 x10^3/uL (1.0-4.8) Monocytes # (Auto) 0.4 x10^3/uL (0.0-1.1) Eosinophils # (Auto) 0.1 x10^3/uL (0.0-0.7) Basophils # (Auto) 0.0 x10^3/uL (0.0-0.2) Sodium Level 138 mmol/L (136-145) Potassium Level 4.2 mmol/L (3.5-5.1) Chloride Level 101 mmol/L (98-107) Carbon Dioxide Level 30 mmol/L (21-32) Anion Gap 7 (6-14) Blood Urea Nitrogen 15 mg/dL (7-20) Creatinine 1.2 mg/dL (0.6-1.0) Estimated GFR (Cockcroft-Gault) 51.2 BUN/Creatinine Ratio 13 (6-20) Glucose Level 204 mg/dL (70-99) Calcium Level 9.3 mg/dL (8.5-10.1) Total Bilirubin 0.3 mg/dL (0.2-1.0) Aspartate Amino Transf (AST/SGOT) 24 U/L (15-37) Alanine Aminotransferase (ALT/SGPT) 38 U/L (14-59) Alkaline Phosphatase 60 U/L (46-116) Troponin I Quantitative < 0.017 ng/mL (0.000-0.055) Total Protein 8.1 g/dL (6.4-8.2) Albumin 3.8 g/dL (3.4-5.0) Albumin/Globulin Ratio 0.9 (1.0-1.7) Lipase 719 U/L (73-393) Glucose (Fingerstick) 201 mg/dL (70-99) Urine Collection Type Unknown Urine Color Yellow Urine Clarity Clear Urine pH 5.0 (<5.0-8.0) Urine Specific [place] 1.010 (1.000-1.030) Urine Protein Negative mg/dL (NEG-TRACE) Urine Glucose (UA) Negative mg/dL (NEG) Urine Ketones (Stick) Negative mg/dL (NEG) Urine Blood Moderate (NEG) Urine Nitrite Negative (NEG) Urine Bilirubin Negative (NEG) Urine Urobilinogen Dipstick 0.2 mg/dL (0.2 mg/dL) Urine Leukocyte Esterase Small (NEG) Urine RBC 6-10 /HPF (0-2) Urine WBC 1-4 /HPF (0-4) Urine Squamous Epithelial Cells Mod /LPF Urine Amorphous Sediment Present /HPF Urine Bacteria Moderate /HPF (0-FEW) Allergies: Coded Allergies: Sulfa (Sulfonamide Antibiotics) (Verified Allergy, Intermediate, 05/02/19) codeine (Verified Adverse Reaction, Intermediate, CONFUSED, 05/02/19) Medications: Current Medications Medications (Trade) Dose Ordered Sig/Hamzah Route PRN Reason Start Time Stop Time Status Last Admin Dose Admin Ondansetron HCl (Zofran) 4 mg 1X ONCE IVP 01/09/20 07:00 01/09/20 07:01 DC 01/09/20 06:59 Sodium Chloride 500 ml @ 500 mls/hr 1X ONCE IV 01/09/20 07:00 01/09/20 07:59 DC 01/09/20 06:59 Iohexol (Omnipaque 300 Mg/ml) 60 ml 1X ONCE IV 01/09/20 07:30 01/09/20 07:31 DC 01/09/20 07:40 Imaging: Imaging: CXR IMPRESSION: 1. Multiple calcified granulomas in the lungs. 2. Stable prominence of the right paratracheal stripe. CT A/P IMPRESSION: 1. No acute process. Appendix is negative. 2. Colonic diverticulosis without diverticulitis evident. 3. Prominent dilation of the pancreatic duct at the head to the tail with an approximate diameter of 9 mm. An underlying ductal stricture or cystic or solid pancreatic lesion associated with the duct dilation is not excluded. These findings could be further assessed with MRCP imaging. 4. 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 There is also a 6 mm noncalcified right lower lobe pleural plaqueversus a subpleural parenchymal pulmonary nodule. Consider follow-up CT imaging in 6-12 months. PE: GEN: NAD HEENT: Atraumatic, PERRL LUNGS: CTAB HEART: RRR ABD: NABS, S/ND, epigastric tenderness EXTREMITY: No edema SKIN: No rashes, no jaundice NEURO/PSYCH: A & O 3 A/P: A/P: Vomiting x 2 weeks, epigastric pain on exam Mildly elevated lipase Dilated PD Occasional reflux, ?past EGD CRC screen - unclear S/p cholecystectomy Mild fatty liver -- COVID test pending. Check CA19-9 and MRCP. Add acid-copy worker. TEJINDER MCCOLLUM Jan 09, 2020 14:01
[2020-01-09] MEDS: IV NORMAL SALINE 1000ML BAG 1,000 ML IV SCH ×2 (14:17→23:30)
[2020-01-09] MEDS: hydrALAZINE 20 MG/ML VIAL. IVP PRN (14:22)
[2020-01-09] MEDS ORDERED: LORA10TA3 PO (14:53)
[2020-01-09] MEDS ORDERED: MAG-111 PO (14:53)
[2020-01-09] MEDS ORDERED: D-ME473S14 PO (14:53)
[2020-01-09] MEDS ORDERED: HYDR-2761 PO (14:53)
[2020-01-09] MEDS ORDERED: SERT25TA PO (14:53)
[2020-01-09] MEDS ORDERED: NYST15CR2 TP (14:53)
[2020-01-09] MEDS ORDERED: FOLI20CA PO (14:53)
[2020-01-09] MEDS ORDERED: FLUT16SP NS (14:53)
[2020-01-09] MEDS ORDERED: DONE5TAB7 PO (14:53)
[2020-01-09] MEDS ORDERED: DICL100G54 TP (14:53)
[2020-01-09] MEDS ORDERED: ONDA-84 PO (14:53)
[2020-01-09] MEDS ORDERED: INSU100V13 SQ (14:53)
[2020-01-09] MEDS ORDERED: ONDA4TAB12 PO (14:53)
[2020-01-09] MEDS ORDERED: LORA0.5T96 PO (14:53)
[2020-01-09 15:00] VITALS: BP 177/74
[2020-01-09] MEDS ORDERED: DEXTROSE 50% 25 GM / 50ML DISP.SYRIN. IV PRN ×2 (16:45)
[2020-01-09] MEDS ORDERED: INSULIN LISPRO 300 UNITS/3 ML VIAL. SQ SCH (17:00)
[2020-01-09] MEDS ORDERED: LORazepam 0.5 MG TABLET PO ONE (17:00)
[2020-01-09] MEDS: PANTOPRAZOLE IV PUSH 40 MG VIAL. IVP SCH (18:15)
[2020-01-09] MEDS: ENOXAPARIN 40 MG/0.4 ML SYRINGE. SQ SCH (18:17)
[2020-01-09] MEDS: INSULIN LISPRO 300 UNITS/3 ML VIAL. SQ SCH (18:17)
[2020-01-09] MEDS: DICLOFENAC SODIUM 1% TOPICAL GEL 100GM TUBE. TP SCH ×2 (18:18→23:08)
[2020-01-09 19:40] VITALS: BP 144/64
[2020-01-09] MEDS: HYDROcodone/APAP 5/325MG 1 TAB TABLET PO PRN (23:08)
[2020-01-09 23:29] VITALS: BP 179/73
[2020-01-10] MEDS: hydrALAZINE 20 MG/ML VIAL. IVP PRN (00:39)
[2020-01-10 01:22] VITALS: BP 116/56
[2020-01-10] MEDS: HYDROcodone/APAP 5/325MG 1 TAB TABLET PO PRN ×2 (01:30→15:25)
[2020-01-10 03:40] VITALS: BP 126/51
[2020-01-10 07:30] VITALS: BP 155/62
[2020-01-10] MEDS: INSULIN LISPRO 300 UNITS/3 ML VIAL. SQ SCH ×3 (08:00→17:12)
[2020-01-10] MEDS: PANTOPRAZOLE IV PUSH 40 MG VIAL. IVP SCH (08:10)
--- NOTE | 2020-01-10 08:44 | PDOC ---
Provider Note Date of Service: DATE: 01/10/20 TIME: 08:44 Provider Note H&P dictated .#[id number]. Justifications for Admission Other Justification MICHELLE WALTERS MD Jan 10, 2020 08:44
[2020-01-10] MEDS: IV NORMAL SALINE 1000ML BAG 1,000 ML IV SCH ×2 (09:17→21:24)
[2020-01-10] MEDS: DICLOFENAC SODIUM 1% TOPICAL GEL 100GM TUBE. TP SCH ×4 (09:20→21:26)
--- NOTE | 2020-01-10 10:25 | NUR ---
SW following. Discussed with RN, pt from [facility] Living, room air, NPO, COVID-19 negative. GI following. RN discussing with Dr. Colunga about possibly ordering PT/OT. SW will continue to follow for any discharge planning needs.
[2020-01-10 11:04] LABS: ALBUMIN 3.1 g/dL (3.4-5.0); ALBUMIN/GLOBULIN RATIO 0.8 (1.0-1.7); CALCIUM 8.3 mg/dL (8.5-10.1); GFR 63.2; TOTAL BILIRUBIN 0.5 mg/dL (0.2-1.0); TOTAL PROTEIN 6.9 g/dL (6.4-8.2)
--- NOTE | 2020-01-10 12:29 | PDOC ---
Date of Service: DATE: 01/10/20 TIME: 12:25 Subjective: Subjective: Tolerated broth yesterday, hasn't eaten today because just back from MRCP. Denies pain. Wants to go home. Objective: Vital Signs: Vital Signs Date Time Temp Pulse Resp B/P (MAP) Pulse Ox O2 Delivery O2 Flow Rate FiO2 01/10/20 08:00 Room Air 01/10/20 07:30 97.9 68 18 155/62 (93) 96 97.9 Labs: Laboratory Tests Test 01/10/20 08:17 01/10/20 09:45 01/10/20 11:41 Glucose (Fingerstick) 147 mg/dL 129 mg/dL Sodium Level 142 mmol/L Potassium Level 4.0 mmol/L Chloride Level 107 mmol/L Carbon Dioxide Level 26 mmol/L Anion Gap 9 Blood Urea Nitrogen 13 mg/dL Creatinine 1.0 mg/dL Estimated GFR (Cockcroft-Gault) 63.2 BUN/Creatinine Ratio 13 Glucose Level 127 mg/dL Calcium Level 8.3 mg/dL Total Bilirubin 0.5 mg/dL Aspartate Amino Transf (AST/SGOT) 26 U/L Alanine Aminotransferase (ALT/SGPT) 33 U/L Alkaline Phosphatase 53 U/L Total Protein 6.9 g/dL Albumin 3.1 g/dL Albumin/Globulin Ratio 0.8 Amylase Level 88 U/L Lipase 136 U/L Imaging: MRCP 01/09 pending PE: GEN: NAD LUNGS: clear HEART: RRR ABD: soft, maybe mildly tender epigastrium NEURO/PSYCH: A & O 3 A/P: Vomiting, epigastric pain - better Mildly elevated lipase - resolved Dilated PD - CA19-9 pending ?GERD - PPI started yesterday COVID negative -- Can try advancing diet, await MRCP. Justicifation of Admission Dx: Justifications for Admission: Justification of Admission Dx: Yes TEJINDER MCCOLLUM Jan 10, 2020 12:29
[2020-01-10 15:00] VITALS: BP 148/70
[2020-01-10] MEDS ORDERED: ONDANSETRON ODT 4 MG TAB.RAPDIS. PO PRN (15:30)
[2020-01-10] MEDS ORDERED: TRIAMCINOLONE ACETONIDE 0.1% TOPICAL CREAM 15GM TUBE. TP PRN (15:45)
[2020-01-10] MEDS ORDERED: guaiFENesin DM 200MG/20MG 10 ML SYRUP PO PRN (15:45)
--- NOTE | 2020-01-10 15:46 | HP ---
ADMIT DATE: 01/09/2020 REASON FOR ADMISSION TO THE HOSPITAL: Abdominal pain, pancreatitis. HISTORY OF PRESENT ILLNESS: The patient is an 89-year-old female. She lives in a [facility] assisted facility and she was having abdominal pain, nausea, vomiting and not getting better and she was brought to the hospital. Her amylase and lipase was elevated. CT scan shows pancreatic prominence of the head. The patient was admitted to the hospital for further investigation and treatment. PAST MEDICAL HISTORY: Diabetes, hypertension, arthritis, depression. PAST SURGICAL HISTORY: Gallbladder surgery, brain tumor, hysterectomy. FAMILY HISTORY: Unremarkable. SOCIAL HISTORY: Denies smoking or alcohol. Lives in the assisted facility. ALLERGIES: SULFA AND CODEINE. MEDICATIONS AT HOME: She is on Aricept 5 mg daily, Flonase, Ativan 0.5, Zofran for nausea, potassium 10 mEq daily, Zoloft 25 mg daily, simvastatin 10 mg daily, albuterol 2 puffs 4 times daily, folic acid 20 mg daily, glimepiride 4 mg daily, hydrochlorothiazide 12.5 daily, insulin 20 units for diabetes daily, loratadine daily, Januvia 100 mg daily, Diovan 320 mg daily. REVIEW OF SYMPTOMS: Denies any chest pain, shortness of breath. Rest of the 14-system was reviewed and negative. PHYSICAL EXAMINATION: GENERAL: The patient is pleasant, not in any distress. VITAL SIGNS: Temperature 98, pulse 66, respirations 20, blood pressure 190/82, 98 on room air. HEENT: Head is atraumatic. Pupils equal. Oral cavity: No congestion. NECK: Supple. Thyroid not enlarged. JVD not elevated. CHEST: Symmetrical. CARDIOVASCULAR: S1, S2. LUNGS: Clear. ABDOMEN: Soft, slight tenderness in the epigastric area. No rebound. Bowel sounds present, no mass palpable. EXTERNAL GENITALIA: No Elam. RECTAL: Deferred. EXTREMITIES: No calf tenderness, no edema. Pulses 1+. The patient has a wheelchair at the facility. NEUROLOGIC: Making conversation. Moving all extremities. LABORATORY DATA: Shows a white count of 7, hemoglobin 12, platelets 208. Electrolytes are sodium 138, potassium 4.2, chloride 101, bicarb 30, BUN 15, creatinine 1.2, glucose 204 and LFTs were normal. Lipase was 719. Urine was negative. Serology negative for coronavirus. PCR was negative. Had a chest x-ray, multiple calcified granuloma in the lungs. CT of the abdomen and pelvis shows a colon diverticulosis, prominent dilatation of the pancreatic duct and the pleural calcification 6 mm noncalcified right lower lung. FINAL IMPRESSION: 1. Abdominal pain. 2. Pancreatitis. 3. Pancreatic prominence ?significance. 4. Diabetes. 5. Hypertension. 6. Arthritis. PLAN: At this time, was admit to hospital. Monitor amylase and lipase. MRCP was planned for today and GI is going to follow and see how she does. MICHELLE WALTERS MD DR: JUAN JOSE/megan JOB#: [id number] / [id number] GER
[2020-01-10] MEDS ORDERED: NON FORMULARY ITEM (Albuterol Sulfate (Ventolin Hfa Inhaler) 2 PUFF) INH SCH (16:00)
--- NOTE | 2020-01-10 16:56 | RAD ---
INDICATION: Reason: dilated pancreatic duct, epigastric pain, nausea / Spl. Instructions: / History: COMPARISON: CT from January 09, 2020 TECHNIQUE: Multiplanar, multisequence MRI images are obtained through the abdomen without intravenous contrast with three-dimensional images processed per protocol. FINDINGS: Degenerative changes of the spine with scoliosis and multilevel central canal neural foraminal stenosis which is not formally evaluated on this exam. The spleen is nonenlarged. Atherosclerotic disease. There is a small amount of edema adjacent to the bilateral kidneys. Postcholecystectomy. Trace pleural effusions. Small hiatal hernia. The common bile duct is dilated measuring up to about 10 mm proximally and tapers distally. There is dilatation of the pancreatic duct with a tortuous appearance. The pancreatic duct measures up to 12 mm. There is also dilatation of the duct extending into the uncinate process measuring up to 8mm. A well-defined filling defect is not seen within the pancreatic duct or the common bile duct. IMPRESSION: * Severe dilatation of the pancreatic duct is again identified. Differential considerations include a stricture or region of stenosis from neoplasm. If not already obtained ERCP could be helpful to further evaluate. Limited assessment for mass secondary to lack of intravenous contrast. * There is also some common bile duct dilation which is a common finding after cholecystectomy. Electronically signed by: Jamaal Page MD (01/10/2020 4:53 PM) [id number]
[2020-01-10] MEDS: ENOXAPARIN 40 MG/0.4 ML SYRINGE. SQ SCH (16:59)
[2020-01-10] MEDS ORDERED: ALBUTEROL SULFATE 2.5 MG/3 ML NEBU. NEB SCH (18:00)
[2020-01-10 19:00] VITALS: BP 152/65
[2020-01-10] MEDS ORDERED: ALBUTEROL SULFATE 2.5 MG/3 ML NEBU. NEB PRN (20:30)
[2020-01-10] MEDS ORDERED: NYSTATIN 100,000 UNIT/GM TOPICAL CREAM 15GM TUBE. TP PRN (21:00)
[2020-01-10] MEDS ORDERED: MAG HYDROX/ALUMINUM HYD/SIMETH 30 ML ORAL.SUSP PO PRN (21:00)
[2020-01-10] MEDS: DONEPEZIL HCL 5 MG TABLET. PO SCH (21:25)
[2020-01-10 23:00] VITALS: BP 152/61
[2020-01-11 03:00] VITALS: BP 144/56
--- NOTE | 2020-01-11 06:41 | NUR ---
NURSING NOTE Pt noted to have blood in her urine the last 2 times up to the [facility] this morning. Pt denies this being present before. Will pass along to dayshift RN in report.
[2020-01-11 07:59] VITALS: BP 163/70
[2020-01-11] MEDS: DICLOFENAC SODIUM 1% TOPICAL GEL 100GM TUBE. TP SCH ×4 (09:00→20:06)
[2020-01-11] MEDS: FLUTICASONE 50MCG/NASAL SPRAY 16GM BOTTLE. NS SCH (09:02)
[2020-01-11] MEDS: FOLIC ACID 1 MG TABLET. PO SCH (09:09)
[2020-01-11] MEDS: PANTOPRAZOLE 40 MG TABLET.DR. PO SCH (09:09)
[2020-01-11] MEDS: LOSARTAN POTASSIUM 50 MG TABLET. PO SCH (09:09)
[2020-01-11] MEDS: hydroCHLOROthiazide 12.5 MG CAPSULE PO SCH (09:10)
[2020-01-11] MEDS: POTASSIUM CHLORIDE 10 MEQ TABLET.ER. PO SCH (09:10)
[2020-01-11] MEDS: SERTRALINE 25 MG TABLET. PO SCH (09:10)
[2020-01-11] MEDS: SIMVASTATIN 10 MG TABLET PO SCH (09:10)
[2020-01-11] MEDS: hydrALAZINE 20 MG/ML VIAL. IVP PRN (09:11)
[2020-01-11] MEDS: INSULIN GLARGINE SYRINGE. SQ SCH (09:14)
[2020-01-11] MEDS: INSULIN LISPRO 300 UNITS/3 ML VIAL. SQ SCH ×3 (09:14→17:11)
[2020-01-11] MEDS: IV NORMAL SALINE 1000ML BAG 1,000 ML IV SCH ×2 (09:23→22:53)
--- NOTE | 2020-01-11 10:27 | PDOC ---
IM PROGRESS NOTES- Subjective Subjective No complaints of abdominal pain, nausea or vomiting. Feels very anxious. Objective Vitals/I&O Vital Signs Date Time Temp Pulse Resp B/P (MAP) Pulse Ox O2 Delivery O2 Flow Rate FiO2 01/11/20 09:11 88 175/58 01/11/20 07:59 98.7 20 92 Room Air 98.7 I & O 01/10/20 01/10/20 01/11/20 15:00 23:00 07:00 Intake Total 100 ml 0 ml Balance 100 ml 0 ml Physical Exam Physical Exam General appearance - alert,well appearing, and in no distress and oriented to person, place, and time Mental Status - alert, oriented to person, place, and time, affect appropriate to mood Head - normal Chest -decreased breath sounds at the Heart - S1 and S2 normal Abdomen - soft, non tender Neurological - alert and oriented Extremities - no pedal edema Skin - warm and dry Labs Laboratory Tests Test 01/10/20 11:41 01/10/20 16:50 01/10/20 20:24 01/10/20 22:56 Glucose (Fingerstick) 129 mg/dL (70-99) H 162 mg/dL (70-99) H 158 mg/dL (70-99) H 150 mg/dL (70-99) H Test 01/11/20 08:15 Glucose (Fingerstick) 166 mg/dL (70-99) H Meds Current Medications Medications (Trade) Dose Ordered Sig/Hamzah Route PRN Reason Start Time Stop Time Status Last Admin Dose Admin Pantoprazole Sodium (Protonix) 40 mg DAILYAC PO 01/11/20 07:30 01/11/20 09:09 Donepezil HCl (Aricept) 5 mg HS PO 01/10/20 21:00 01/10/20 21:25 Fluticasone Propionate (Flonase) 2 spray DAILY NS 01/11/20 09:00 01/11/20 09:02 Potassium Chloride (Klor-Con) 10 meq DAILY PO 01/11/20 09:00 01/11/20 09:10 Sertraline HCl (Zoloft) 25 mg DAILY PO 01/11/20 09:00 01/11/20 09:10 Simvastatin (Zocor) 10 mg DAILY PO 01/11/20 09:00 01/11/20 09:10 Folic Acid (Folic Acid) 1 mg DAILY PO 01/11/20 09:00 01/11/20 09:09 Hydrochlorothiazide (Microzide) 12.5 mg DAILY PO 01/11/20 09:00 01/11/20 09:10 Insulin Glargine (Lantus Syringe) 10 unit DAILY SQ 01/11/20 09:00 01/11/20 09:14 Losartan Potassium (Cozaar) 100 mg DAILY PO 01/11/20 09:00 01/11/20 09:09 Albuterol Sulfate (Ventolin Neb Soln) 2.5 mg Q4HRS W/A NEB 01/10/20 18:00 01/10/20 20:20 DC 01/10/20 18:00 Assessment Assessment 1. Abdominal pain. 2. Pancreatitis. 3. Pancreatic prominence. 4. Diabetes. 5. Hypertension. 6. Arthritis. PLAN: Acute pancreatitis clinically improving . MRCP shows severe dilatation of the pancreatic duct CA 199 is pending. May need ERCP GERD--PPI started Anxiety Plan Plan For more details regarding further plans, please refer to the orders. Justifications for Admission Other Justification ANNALISE ATKINS MD Jan 11, 2020 10:27
[2020-01-11 11:59] VITALS: BP 139/62
[2020-01-11] MEDS: HYDROcodone/APAP 5/325MG 1 TAB TABLET PO PRN (15:10)
[2020-01-11] MEDS: LORazepam 0.5 MG TABLET PO PRN (15:10)
[2020-01-11 15:59] VITALS: BP 126/50
[2020-01-11] MEDS: ENOXAPARIN 40 MG/0.4 ML SYRINGE. SQ SCH (17:10)
[2020-01-11 19:00] VITALS: BP 132/55
[2020-01-11] MEDS: DONEPEZIL HCL 5 MG TABLET. PO SCH (20:05)
[2020-01-11 23:00] VITALS: BP 151/41
[2020-01-12 03:01] VITALS: BP 144/59
[2020-01-12 06:01] LABS: CALCIUM 8.2 mg/dL (8.5-10.1); CREATININE 1.1 mg/dL (0.6-1.0); GFR 56.6; POTASSIUM 3.7 mmol/L (3.5-5.1)
[2020-01-12 07:37] VITALS: BP 126/63
[2020-01-12] MEDS: FLUTICASONE 50MCG/NASAL SPRAY 16GM BOTTLE. NS SCH (08:06)
[2020-01-12] MEDS: FOLIC ACID 1 MG TABLET. PO SCH (08:07)
[2020-01-12] MEDS: SERTRALINE 25 MG TABLET. PO SCH (08:07)
[2020-01-12] MEDS: PANTOPRAZOLE 40 MG TABLET.DR. PO SCH (08:07)
[2020-01-12] MEDS: SIMVASTATIN 10 MG TABLET PO SCH (08:07)
[2020-01-12] MEDS: hydroCHLOROthiazide 12.5 MG CAPSULE PO SCH (08:07)
[2020-01-12] MEDS: POTASSIUM CHLORIDE 10 MEQ TABLET.ER. PO SCH (08:07)
[2020-01-12] MEDS: INSULIN GLARGINE SYRINGE. SQ SCH (08:08)
[2020-01-12] MEDS: LOSARTAN POTASSIUM 50 MG TABLET. PO SCH (08:08)
[2020-01-12] MEDS: DICLOFENAC SODIUM 1% TOPICAL GEL 100GM TUBE. TP SCH ×4 (08:09→19:36)
[2020-01-12] MEDS: INSULIN LISPRO 300 UNITS/3 ML VIAL. SQ SCH ×3 (08:11→17:00)
--- NOTE | 2020-01-12 09:32 | PDOC ---
IM PROGRESS NOTES- Subjective Subjective No complaints of abdominal pain, nausea or vomiting. Feels very anxious. Complains of low back pain Objective Vitals/I&O Vital Signs Date Time Temp Pulse Resp B/P (MAP) Pulse Ox O2 Delivery O2 Flow Rate FiO2 01/12/20 08:08 18 126/63 01/12/20 07:37 98.1 18 96 Room Air 98.1 I & O 01/11/20 01/11/20 01/12/20 15:00 23:00 07:00 Output Total 100 ml Balance -100 ml Physical Exam Physical Exam General appearance - alert,well appearing, and in no distress and oriented to person, place, and time Mental Status - alert, oriented to person, place, and time, affect appropriate to mood Head - normal Chest -decreased breath sounds at the Heart - S1 and S2 normal Abdomen - soft, non tender Neurological - alert and oriented Extremities - no pedal edema Skin - warm and dry Labs Laboratory Tests Test 01/11/20 12:31 01/11/20 16:53 01/11/20 21:38 01/12/20 05:00 Glucose (Fingerstick) 197 mg/dL (70-99) H 159 mg/dL (70-99) H 216 mg/dL (70-99) H Sodium Level 142 mmol/L (136-145) Potassium Level 3.7 mmol/L (3.5-5.1) Chloride Level 109 mmol/L (98-107) H Carbon Dioxide Level 24 mmol/L (21-32) Anion Gap 9 (6-14) Blood Urea Nitrogen 9 mg/dL (7-20) Creatinine 1.1 mg/dL (0.6-1.0) H Estimated GFR (Cockcroft-Gault) 56.6 Glucose Level 192 mg/dL (70-99) H Calcium Level 8.2 mg/dL (8.5-10.1) L Test 01/12/20 07:27 Glucose (Fingerstick) 151 mg/dL (70-99) H Laboratory Tests 01/12/20 05:00 Assessment Assessment 1. Abdominal pain. 2. Pancreatitis. 3. Pancreatic prominence. 4. Diabetes. 5. Hypertension. 6. Arthritis. PLAN: Acute pancreatitis clinically improving . Advance diet. Discontinue IV fluids. MRCP shows severe dilatation of the pancreatic duct CA 199 is pending. August ne ed ERCP GERD--PPI started Anxiety Low back pain-hydrocodone, Voltaren gel Plan Plan For more details regarding further plans, please refer to the orders. Justifications for Admission Other Justification ANNALISE ATKINS MD Jan 12, 2020 09:32
[2020-01-12 10:27] VITALS: BP 164/68
[2020-01-12 15:59] VITALS: BP 154/57
[2020-01-12] MEDS: HYDROcodone/APAP 5/325MG 1 TAB TABLET PO PRN (16:02)
[2020-01-12] MEDS: ENOXAPARIN 40 MG/0.4 ML SYRINGE. SQ SCH (17:02)
[2020-01-12] MEDS: LORazepam 0.5 MG TABLET PO PRN (17:02)
[2020-01-12 19:00] VITALS: BP 137/53
[2020-01-12] MEDS: DONEPEZIL HCL 5 MG TABLET. PO SCH (19:38)
[2020-01-12] MEDS ORDERED: INSU100V35 SQ (21:51)
[2020-01-12 23:01] VITALS: BP 142/55
[2020-01-13 03:02] VITALS: BP 114/69
[2020-01-13 07:00] VITALS: BP 159/58
--- NOTE | 2020-01-13 08:57 | PDOC ---
PROGRESS NOTES Date of Service: DATE: 01/13/20 TIME: 08:52 Subjective Subjective feels better, tolerating diet Objective Objective Vital Signs Date Time Temp Pulse Resp B/P (MAP) Pulse Ox O2 Delivery O2 Flow Rate FiO2 01/13/20 07:00 98.8 70 18 159/58 (91) 97 Room Air 98.8 Intake and Output 01/13/20 06:59 Output Total 200 ml Balance -200 ml Output Urine Total 200 ml # Voids 2 Physical Exam Abdomen: Soft Heart: Regular rate, Normal S1, Normal S2 Extremities: No clubbing General: Alert HEENT: Atraumatic Lungs: Clear to auscultation MUSCULOSKELETAL: No swelling Neck: Supple Neuro: Normal speech Psych/Mental Status: Mood NL Skin: No breakdown Diagnosis Problem List Problems Medical Problems: (1) Cough Status: Acute (2) Nausea and vomiting Status: Acute (3) Pancreatitis Status: Acute Assessment Assessment 1. Abdominal pain. 2. Pancreatic mass in the head highly suspicious for pancreatic cancer. 3. Pancreatic duct dilatation. 4. Diabetes. 5. Hypertension. 6. Arthritis. PLAN: MRCP noted suspecious for pancreatic cancer Ca 19-9 high,93 given her ago and comorbidities,she willnot be a candidate for treatment for pancreatic ca. spoke with Gi ,they are not keen on ERCP. spoke with pt and pts son Ethan , very high probability of pancreatic cancer. she will go home to [facility] facility today,if no GI plans for ERCP. Acute pancreatitis clinically improving . Advance diet. Discontinue IV fluids. MRCP shows severe dilatation of the pancreatic duct CA 199 is pending. May need ERCP GERD--PPI started Anxiety Low back pain-hydrocodone, Voltaren gel Plan Plan of Care Problems Medical Problems: (1) Cough Status: Acute (2) Nausea and vomiting Status: Acute (3) Pancreatitis Status: Acute Comment Review of Relevant I have reviewed the following items debbie (where applicable) has been applied. Labs Laboratory Tests Test 01/12/20 11:42 01/12/20 15:21 01/12/20 20:53 01/13/20 07:17 Glucose (Fingerstick) 175 mg/dL (70-99) 122 mg/dL (70-99) 251 mg/dL (70-99) 163 mg/dL (70-99) Test 01/13/20 07:55 Glucose (Fingerstick) 167 mg/dL (70-99) Microbiology 01/09/20 Urine Culture - Final, Complete Vitals/I & O Vital Sign - Last 24 Hours 01/12/20 01/12/20 01/12/20 01/12/20 10:27 10:56 15:59 19:00 Temp 98.1 98.2 97.9 98.1 98.2 97.9 Pulse 84 84 75 Resp 20 20 20 B/P (MAP) 164/68 (100) 154/57 (89) 137/53 (81) Pulse Ox 98 95 96 O2 Delivery Room Air Room Air Room Air Room Air 01/12/20 01/12/20 01/13/20 01/13/20 19:39 23:01 03:02 07:00 Temp 98.5 98.3 98.8 98.5 98.3 98.8 Pulse 65 66 70 Resp 20 18 18 B/P (MAP) 142/55 (84) 114/69 (84) 159/58 (91) Pulse Ox 96 96 97 O2 Delivery Room Air Room Air Room Air Room Air Intake and Output 01/12/20 01/12/20 01/13/20 14:59 22:59 06:59 Output Total 200 ml Balance -200 ml Justifications for Admission Other Justification MICHELLE WALTERS MD Jan 13, 2020 08:57
[2020-01-13] MEDS ORDERED: HYDR-2759 PO (08:59)
[2020-01-13] MEDS: FOLIC ACID 1 MG TABLET. PO SCH (09:00)
[2020-01-13] MEDS: SIMVASTATIN 10 MG TABLET PO SCH (09:00)
[2020-01-13] MEDS: DICLOFENAC SODIUM 1% TOPICAL GEL 100GM TUBE. TP SCH ×2 (09:00→11:55)
[2020-01-13] MEDS: SERTRALINE 25 MG TABLET. PO SCH (09:00)
[2020-01-13] MEDS: FLUTICASONE 50MCG/NASAL SPRAY 16GM BOTTLE. NS SCH (09:00)
[2020-01-13] MEDS: PANTOPRAZOLE 40 MG TABLET.DR. PO SCH (09:00)
[2020-01-13] MEDS: hydroCHLOROthiazide 12.5 MG CAPSULE PO SCH (09:00)
[2020-01-13] MEDS: POTASSIUM CHLORIDE 10 MEQ TABLET.ER. PO SCH (09:01)
[2020-01-13] MEDS: LOSARTAN POTASSIUM 50 MG TABLET. PO SCH (09:01)
[2020-01-13] MEDS: INSULIN LISPRO 300 UNITS/3 ML VIAL. SQ SCH ×2 (09:02→12:05)
--- NOTE | 2020-01-13 09:41 | PDOC ---
Date of Service: DATE: 01/13/20 TIME: 09:38 Subjective: Subjective: Feels fine, eating without issue. Objective: Objective: D/w Dr. Colunga and Dr. Richard - MRCP and elevated CA19-9 noted, possible malignancy - no plans for further evaluation at this time w/ improvement of symptoms, advance age, etc. - possible DC today. Vital Signs: Vital Signs Date Time Temp Pulse Resp B/P (MAP) Pulse Ox O2 Delivery O2 Flow Rate FiO2 01/13/20 09:01 70 159/58 01/13/20 07:00 98.8 18 97 Room Air 98.8 Labs: Laboratory Tests Test 01/12/20 11:42 01/12/20 15:21 01/12/20 20:53 01/13/20 07:17 Glucose (Fingerstick) 175 mg/dL 122 mg/dL 251 mg/dL 163 mg/dL Test 01/13/20 07:55 Glucose (Fingerstick) 167 mg/dL Imaging: MRCP 01/09 * Severe dilatation of the pancreatic duct is again identified. Differential considerations include a stricture or region of stenosis from neoplasm. If not already obtained ERCP could be helpful to further evaluate. Limited assessment for mass secondary to lack of intravenous contrast. * There is also some common bile duct dilation which is a common finding after cholecystectomy. PE: GEN: NAD - sitting on edge of bed LUNGS: CTAB HEART: RRR ABD: S/ND/NT NEURO/PSYCH: A & O 3 A/P: Vomiting, epigastric pain - resolved Mildly elevated lipase, dilated PD, elevated CA19-9 ?GERD - on PPI -- DC per primary. Justicifation of Admission Dx: Justifications for Admission: Justification of Admission Dx: Yes TEJINDER MCCOLLUM Jan 13, 2020 09:41
[2020-01-13] MEDS: INSULIN GLARGINE SYRINGE. SQ SCH (09:52)
--- NOTE | 2020-01-13 10:23 | NUR ---
SW following. Discussed with RN, pt from [facility] [place], soft mechanical diet. PT/OT recommending assisted living. Discharge order for pt to go back to [facility] today. No further SW needs.
[2020-01-13 10:39] VITALS: BP 173/69
--- NOTE | 2020-01-13 13:59 | NUR ---
patient discharged to [facility]. pt left via private vehicle with son. meds and follow up reviewed w/ patient and family. pt stable upon dc. IV removed, cath intact.
--- NOTE | 2020-01-14 19:24 | PDOC ---
Provider Note Date of Service: DATE: 01/14/20 TIME: 19:23 Provider Note Discharge summary dictated.#[id number] Justifications for Admission Other Justification MICHELLE WALTERS MD Jan 14, 2020 19:24
--- NOTE | 2020-01-14 21:19 | DS ---
DATE OF DISCHARGE: 01/13/2020 REASON FOR ADMISSION TO THE HOSPITAL: Abdominal pain, pancreatitis, pancreatic mass, possible pancreatic cancer. CONSULTATIONS: Dr. Richard. PROCEDURES DONE: 1. CT of the abdomen. 2. MRCP. HOSPITAL COURSE: The patient is an 89-year-old female. She lives in assisted care facility. She has history of diabetes, hypertension. She has been having abdominal pain, nausea, vomiting for a month and says that her appetite is not good, does not like the food at the assisted facility. The patient was admitted to the hospital and her lipase was elevated to 719 and the patient had a CT scan of the abdomen and pelvis, which shows prominent dilatation of the pancreatic duct at the head and the patient was seen by GI and it was initially thought pancreatitis. Repeat amylase and lipase was normal the next day, amylase 88, lipase 136. Her CA 19-9 was elevated to 93, normal is less than 35 and the patient had an MRCP, which shows dilatation of the pancreatic duct and because of her age as well as other comorbidities, it was decided by the patient and the family that ERCP is not needed at this time. If things do not improve down the road If obstructive jaundice, then ERCP could be attempted, but with elevated CA 19-9 with her pancreatic dilatation, highly likely that the patient could have a pancreatic cancer at this time; however, it is not certain. The patient's family was explained and would discharge back her to assisted facility and she is tolerating diet well. FINAL DIAGNOSES: 1. Dilatation of the pancreatic duct, highly suspicious for pancreatic cancer. 2. Elevated CA 19-9, suggestive of possible pancreatic cancer. 3. Diabetes, hypertension, obesity. PLAN: At this time, was discharge to assisted facility. MICHELLE WALTERS MD DR: JUAN JOSE/megan JOB#: [id number] / [id number] GER
[2020-01-24] MEDS ORDERED: MERO500V24 IV (08:55)
[2020-01-24] MEDS ORDERED: CLON1PAT6 TD (08:55)
[2020-01-24] MEDS ORDERED: ENOX30DI3 SQ (08:55)
== END 2020-01-13 13:00 | disposition home or self-care (01) | DRG 435 ==
LOC: ER 05:19 → 6 SOUTH 08:41 → 5 NORTH 01-10 07:55
PROVIDERS: ADMIT Internal Medicine; ATTEND Internal Medicine
DX: C25.9 Malignant neoplasm of pancreas, unspecified (principal); K85.90 Acute pancreatitis without necrosis or infection, unspecified; D49.6 Neoplasm of unspecified behavior of brain; E11.9 Type 2 diabetes mellitus without complications; E66.9 Obesity, unspecified; E78.00 Pure hypercholesterolemia, unspecified; F32.9 Major depressive disorder, single episode, unspecified; F41.9 Anxiety disorder, unspecified; I10 Essential (primary) hypertension; J61 Pneumoconiosis due to asbestos and other mineral fibers; K21.9 Gastro-esophageal reflux disease without esophagitis; K43.9 Ventral hernia without obstruction or gangrene; K44.9 Diaphragmatic hernia without obstruction or gangrene; K57.30 Diverticulosis of large intestine without perforation or abscess without bleeding; K76.0 Fatty (change of) liver, not elsewhere classified; K86.89 Other specified diseases of pancreas; M41.9 Scoliosis, unspecified; M47.9 Spondylosis, unspecified; Z20.828 Contact with and (suspected) exposure to other viral communicable diseases; Z87.891 Personal history of nicotine dependence; Z90.49 Acquired absence of other specified parts of digestive tract; Z90.710 Acquired absence of both cervix and uterus; Z88.8 Allergy status to other drugs, medicaments and biological substances; Z88.2 Allergy status to sulfonamides; Z68.32 Body mass index [BMI] 32.0-32.9, adult
CPT/HCPCS: 36415; 71045; 74177; 74181; 80048; 80053; 81001; 82150; 82962; 83690; 84484; 85025; 86301; 87086; 93005; 94640; 96361; 96374; 99285; C9113; J0360; J1650; J1815; J2060; J2405; J7030; J7040; Q9967; 97530-GP; 97535-GO; G0378; J7613; U0003-CS